=== PATIENT | male | born 1965 | race Caucasian/White ===

== ENCOUNTER 2018-12-29 07:40 | Outpatient (CLI) | payer OTHER | END 2018-12-29 08:30 | disposition home or self-care (01) | LOC: SONOGRAMA 07:40 | DX: R94.5 Abnormal results of liver function studies (principal); K76.0 Fatty (change of) liver, not elsewhere classified ==

== ENCOUNTER → 2024-01-29 | Outpatient (CLI) | payer OTHER | END | disposition home or self-care (01) | LOC: TOM 08:56 | PROVIDERS: ATTEND General Practice | DX: R50.9 Fever, unspecified (principal) ==